=== PATIENT | male | born 1945 | race Caucasian/White ===

== ENCOUNTER 2021-01-14 16:46 | Outpatient (CLI) | payer MEDICARE, OTHER | END 2021-01-14 16:47 | disposition home or self-care (01) | LOC: COV 16:46 | PROVIDERS: ATTEND Family Medicine | DX: Z20.822 Contact with and (suspected) exposure to COVID-19 (principal) ==

== ENCOUNTER 2021-05-26 11:18 | Outpatient (CLI) | payer MEDICARE, OTHER ==
--- NOTE | 2021-05-26 12:50 | XRAY Report ---
PROCEDURE: Wrist 4 View LT INDICATIONS: L WRIST PX TECHNIQUE: 4 views of the wrist were acquired. COMPARISON: None FINDINGS: Bones: No fractures or dislocations. No suspicious bony lesions. Scaphoid view: Scaphoid is intact. Soft tissues: No suspicious soft tissue calcifications. IMPRESSION: No fracture. No osseous lesion. If there are persistent symptoms or continued clinical concern for pa thology, then repeat plain film radiographs (7-10 days) or advanced imaging (CT, MR, bone scan) shoul d be considered for further evaluation. Reviewed by: Amairani Bourgeois MD, PhD on 05/26/2021 12:48 PM PST Approved by: Amairani Bourgeois MD, PhD on 05/26/2021 12:48 PM [facility] Station ID: [id number]
== END 2021-05-26 23:59 | disposition home or self-care (01) ==
LOC: DI.N 11:18
PROVIDERS: ATTEND Family Medicine
DX: M25.532 Pain in left wrist (principal)